=== PATIENT | female | born 1970 | race Caucasian/White ===

== ENCOUNTER 2020-08-14 15:28 | Emergency (ER) | payer BC ==
[~2020-08-14] VITALS: Ht 160 cm; Wt 61.2 kg
[2020-08-14 15:31] VITALS: BP_SYST 109
[2020-08-14] MEDS ORDERED: IBUP-1969 PO (16:26)
[2020-08-14 16:36] VITALS: BP_SYST 109
== END 2020-08-14 16:35 | disposition home or self-care (01) ==
LOC: SED 15:28
DX: S90.32XA Contusion of left foot, initial encounter (principal); Z79.899 Other long term (current) drug therapy; W22.8XXA Striking against or struck by other objects, initial encounter; Y93.89 Activity, other specified; Y92.89 Other specified places as the place of occurrence of the external cause; Y99.8 Other external cause status
CPT/HCPCS: 99283

== ENCOUNTER 2020-08-18 02:33 | Emergency (ER) | payer BC ==
[~2020-08-18] VITALS: Ht 160 cm; Wt 61.2 kg
[~2020-08-18 02:33] MED LIST: IBUP-1969 PO
[2020-08-18 02:37] VITALS: BP_SYST 112
[2020-08-18] MEDS ORDERED: ASPIRIN 325 MG TABLET PO ONE (02:45)
[2020-08-18 03:10] LABS: BASOPHILS # (AUTO) 0.1 K/uL (0.0-0.2); BASOPHILS % (AUTO) 0.7 % (0.0-2.0); EOSINOPHILS # (AUTO) 0.6 K/uL (0.0-0.4); EOSINOPHILS % (AUTO) 5.9 % (0.0-4.0); HEMATOCRIT 41.4 % (36-48); HEMOGLOBIN 14.1 g/dL (12.0-16.0); LYMPHOCYTES # (AUTO) 2.1 K/uL (1.0-5.5); MEAN CORPUSCULAR HEMOGLOBIN 33 pg (27-31); MEAN CORPUSCULAR HGB CONC 34 % (32-36); MEAN CORPUSCULAR VOLUME 98 fL (79.0-98.0); MONOCYTES # (AUTO) 0.9 K/uL (0.0-1.0); MONOCYTES % (AUTO) 8.9 % (1.7-9.3); NEUTROPHILS # (AUTO) 6.8 K/uL (1.8-7.7); NEUTROPHILS % (AUTO) 64.5 % (40.0-70.0); PLATELET COUNT (AUTO) 286 K/uL (130-430); RED BLOOD CELL COUNT(AUTO) 4.23 MIL/uL (4.2-6.2); RED CELL DISTRIBUTION WIDTH 13.2 % (9.0-15.0); WHITE BLOOD COUNT (AUTO) 10.5 K/uL (4.8-10.8)
[2020-08-18 03:25] LABS: CREATININE 0.67 mg/dL (0.55-1.30); POTASSIUM 3.7 mmol/L (3.5-5.1)
[2020-08-18 03:30] LABS: ALBUMIN 3.6 g/dL (3.4-4.8); TOTAL BILIRUBIN 0.2 mg/dL (0.0-1.0)
[2020-08-18] MEDS ORDERED: OMEP20CA15 PO (05:18)
[2020-08-18 05:30] VITALS: BP_SYST 108
== END 2020-08-18 05:30 | disposition home or self-care (01) ==
LOC: SED 02:33
DX: R07.89 Other chest pain (principal); R06.02 Shortness of breath; Z79.899 Other long term (current) drug therapy
CPT/HCPCS: 36415; 71045; 80053; 84484; 85025; 93005; 99285